=== PATIENT | female | born 1945 | race Caucasian/White ===

== ENCOUNTER → 2016-08-13 | Outpatient (CLI) | payer MEDICARE, OTHER ==
[~2016-08-13] MED LIST: ASP81CT PO; CHOL50003 PO; ESTR0.5T PO; Estrace; FISH1CAP15 PO; HYDR1TAB PO
--- NOTE | 2016-08-13 15:44 | Diagnostic Imaging Report ---
Examination: DEXA scan. Indication: Osteopenia Technique: Bone mineral density estimated based on dual energy radiography over the lumbar spine and femoral necks, was performed. Findings: The lumbar spine T-score is 0. This is 4.8% increased density measurement compared to previous exam from 2012 and could be from mild degenerative sclerosis. T score over the femoral neck on the left is -1.7 and on the right is -1.9.. This is unchanged from 2012 measurements. Impression: Osteopenia. Dictated by: Dictated on workstation # [id number]
== END ==
LOC: RAD 11:03
PROVIDERS: ATTEND Family Medicine
DX: M85.852 Other specified disorders of bone density and structure, left thigh (principal)
CPT/HCPCS: 77080

== ENCOUNTER 2016-09-03 05:42 | Outpatient (CLI) | payer MEDICARE, OTHER ==
[~2016-09-03] VITALS: Ht 165.1 cm; Wt 68.0 kg
[~2016-09-03 05:42] MED LIST changes: -ESTR0.5T PO
[2016-09-03] MEDS ORDERED: ESTR0.5T PO (12:37)
== END 2016-09-03 12:39 ==
LOC: PREOP 05:42
PROVIDERS: ATTEND Surgery
DX: Z01.818 Encounter for other preprocedural examination (principal); Z12.11 Encounter for screening for malignant neoplasm of colon

== ENCOUNTER 2016-09-07 07:52 | Day surgery (SDC) | payer MEDICARE, OTHER ==
[~2016-09-07] VITALS: Ht 165.1 cm; Wt 68.0 kg
[~2016-09-07 07:52] MED LIST changes: +ESTR0.5T PO
--- OUTSIDE RECORDS SUMMARY | 2016-09-07 07:55 | XMS REPORT | Continuity of Care Document ---
Author Author [facility] Organization [facility] Address Unknown Phone Unavailable Care Team Providers Care Cafeteria Counter Attendant Name Role Phone MICHELLE MARQUIS DO PCP Insurance Providers Payer Name Policy Number Subscriber Name Relationship Wps Medicare [id number] Hema Freeman 18 Self / Same As Patient Enter Insurance Name [id number] Hema Freeman 18 Self / Same As Patient Advance Directives Directive Response Recorded Date/Time Advance Directives No 09/03/16 12:33pm Health Care Power of Child Life Assistant No 09/03/16 12:33pm Organ Donor Yes 09/03/16 12:33pm Resuscitation Status Full Code 09/03/16 12:33pm Problems No problem information available. Medications Current Home Medications Medication Dose Units Route Directions Days/Qty Instructions Start Date Fish Oil/Dha/Epa 1 Each 1 Each Oral Daily 04/18/12 Cholecalciferol 5,000 Unit 5,000 Unit Oral Daily 04/18/12 Aspirin 81 Mg 81 Mg Oral Daily 04/18/12 Estradiol 0.5 Mg 0.5 Mg Oral Daily 09/03/16 Past Home Medications Medication Directions Ordered Status [Estrace] , 04/18/12 Discontinued Acetaminophen/Hydrocodone Bitart 1 Each Tablet, 1 - 2 Each Oral Q 4-6 Hr Prn Pain 04/19/12 Discontinued Social History Social History Problem Response Recorded Date/Time Alcohol Use Denies Use 09/03/2016 12:33pm Recreational Drug Use No 09/03/2016 12:33pm Recent Foreign Travel No 09/03/2016 12:33pm Recent Infectious Disease Exposure No 09/03/2016 12:33pm Smoking Status Never a Smoker 09/03/2016 12:33pm Recent Hopitalizations No 09/03/2016 12:33pm Query Response Start Date Stop Date Smoking Status Never a Smoker Hospital Discharge Instructions No hospital discharge instructions. Plan of Care Discharge Date 09/03/16 12:39pm Prescriptions See Medication Section Functional Status No functional status results. Allergies, Adverse Reactions, Alerts Allergen Type Severity Reaction Status Last Updated SULFA Allergy Unknown Active 12/10/10 Immunizations No immunization records. Vital Signs Acute Vital Signs Vital Response Date/Time Height (Feet) 5 feet 09/03/2016 12:33pm Height (Inches) 5.00 inches 09/03/2016 12:33pm Height (Calculated Centimeters) 165.478316 cm 09/03/2016 12:33pm Weight (Pounds) 150 pounds 09/03/2016 12:33pm Weight (Ounces) 0.0 oz 09/03/2016 12:33pm Weight (Calculated Grams) 13387.86 gm 09/03/2016 12:33pm Weight (Calculated Kilograms) 68.431478 kilograms 09/03/2016 12:33pm Calculated BMI 25.0 09/03/2016 12:33pm Results No known relevant diagnostic tests, laboratory data and/or discharge summary. Procedures No known history of procedures. Encounters Encounter Location Arrival/Admit Date Discharge/Depart Date Attending Provider Departed Clinic [facility] 09/03/16 5:42am 09/03/16 12: 39pm HERNAN TO MD Registered Clinic [facility] 08/13/16 11:03am MICHELLE MARQUIS DO Registered Clinic [facility] 08/07/16 3:00pm MICHELLE MARQUIS DO
--- OUTSIDE RECORDS SUMMARY | 2016-09-07 07:55 | XMS REPORT | Continuity of Care Document ---
Author Author [facility] Organization [facility] Address Unknown Phone Unavailable Care Team Providers Care First Cook Name Role Phone MICHELLE MARQUIS DO PCP Insurance Providers Payer Name Policy Number Subscriber Name Relationship Wps Medicare [id number] Hema Freeman 18 Self / Same As Patient Enter Insurance Name [id number] Hema Freeman 20 Self / Same As Patient Advance Directives Directive Response Recorded Date/Time Advance Directives No 09/03/16 12:33pm Health Care Power of Enterprise Resource Planner No 09/03/16 12:33pm Organ Donor Yes 09/03/16 [...] 5.00 inches 09/03/2016 12:33pm Height (Calculated Centimeters) 165.198354 cm 09/03/2016 12:33pm Weight (Pounds) 150 pounds 09/03/2016 12:33pm Weight (Ounces) 0.0 oz 09/03/2016 12:33pm Weight (Calculated Grams) 31463.86 gm 09/03/2016 12:33pm Weight (Calculated Kilograms) 68.195393 kilograms 09/03/2016 12:33pm Calculated BMI 25.0 09/03/2016 12:33pm Results No known relevant diagnostic tests, laboratory data and/or discharge summary. Procedures No known history of procedures. Encounters Encounter Location Arrival/Admit Date Discharge/Depart Date Attending Provider Departed Clinic [facility] 09/03/16 5:42am 09/03/16 12: 39pm HERNAN TO MD Registered Clinic [facility] 08/13/16 11:03am MICHELLE MARQUIS DO Registered Clinic [facility] 08/07/16 3:00pm MICHELLE MARQUIS DO
[2016-09-07] MEDS ORDERED: NS IV 500 ML 500 ML ONE (08:07)
[2016-09-07 08:33] VITALS: BP 118/78
[2016-09-07] MEDS ORDERED: MIDAZOLAM 2 MG/2 ML (VERSED) VIAL ONE ×3 (08:43→08:44)
[2016-09-07] MEDS ORDERED: fentaNYL INJECTION 100 MCG/2 ML AMP ONE ×2 (08:44)
[2016-09-07] MEDS: fentaNYL INJECTION 100 MCG/2 ML AMP IVP PRN ×2 (08:47→08:55)
--- NOTE | 2016-09-07 08:48 | Pre-Op Note & Conscious Sedat ---
Pre-Operative Progress Note H&P Reviewed The H&P was reviewed, patient examined and no changes noted. Date H&P Reviewed: Sep 07, 2016 Time H&P Reviewed: 08:48 Pre-Op Diagnosis: screening. Family history of colon cancer Conscious Sedation Pre-Proced ASA Class: 1 Airway Mallampati Classification: ([place] appropriate class) I. II. III, IV Lungs Heart ASA score ASA 1: a normal healthy patient ASA 2: a patient with a mild systemic disease (mid diabetes, controlled hypertension, obesity ASA 3: a patient with a severe systemic disease that limits activity (angina , COPD, prior Myocardial infarction) ASA 4: a patient with an incapacitating disease that is a constant threat to life (CHF, renal failure) ASA 5: a moribund patient not expected to survive 24 hrs. (ruptured aneurysm) ASA 6: a declared brain patient whose organs are being harvested. For emergent operations, add the letter E after the classification Grade 1 Sedation Plan: Discussed options with patient/fam Note The patient is an appropriate candidate to undergo the planned procedure, sedation, and anesthesia. The patient immediately re-assessed prior to indication. HERNAN TO MD Sep 07, 2016 8:48 am
[2016-09-07] MEDS: MIDAZOLAM 2 MG/2 ML (VERSED) VIAL IVP PRN ×3 (08:50→09:02)
[2016-09-07] MEDS ORDERED: FLUMAZENIL (ROMAZICON) 0.1 MG/ML 5 ML VIAL INJ PRN (09:00)
[2016-09-07] MEDS ORDERED: NALOXONE 0.4 MG/ML 1 ML (NARCAN) VIAL IVP PRN (09:00)
[2016-09-07] MEDS ORDERED: NS IV 500 ML 500 ML IV PRN (09:00)
--- NOTE | 2016-09-07 09:15 | Progress Note-Post Operative ---
Post-Operative Progess Note Pre-Operative Diagnosis screening. Family history of colon cancer Post-Operative Diagnosis diffuse diverticulosis Post-Op Procedure Note Date of Procedure: Sep 07, 2016 Name of Procedure: colonoscopy to cecum Anesthesia Type sedation HERNAN TO MD Sep 07, 2016 9:15 am
--- NOTE | 2016-09-07 09:16 | Discharge Inst-Simple/Standard ---
Discharge Inst-Standard Discharge Medications New, Converted or Re-Newed RX: Other Patient Instructions/Follow Up Plan of Care/Instructions/FU: repeat colonoscopy in 5 years Activity as Tolerated: Yes Discharge Diet: No Restrictions HERNAN TO MD Sep 07, 2016 9:16 am
[2016-09-07 09:30] VITALS: BP 103/72
[2016-09-07 10:00] VITALS: BP 109/70
--- NOTE | 2016-09-07 10:34 | PROCEDURE REPORT ---
PROCEDURE PHYSICIAN: HERNAN TO DATE OF PROCEDURE: 09/07/2016 PROCEDURE: Screening colonoscopy. SURGEON: Demarcus INDICATION FOR THE PROCEDURE: This lady came in for screening colonoscopy. She reported a positive family history of colon cancer. Informed consent was obtained after reviewing the procedure in detail. DESCRIPTION OF PROCEDURE: She was placed in left lateral decubitus position and her vital signs were monitored. Conscious sedation was achieved using Versed and fentanyl. Digital rectal examination was unremarkable. The colonoscope was then introduced into the rectum and advanced all the way up to the cecum. The scope was then withdrawn slowly and the mucosa examined in a systematic fashion. FINDINGS: 1. Quite diffuse diverticulosis, all the way up to the cecum. 2. No polyps were found. She tolerated the procedure well and was taken back to the nursing area in a stable condition. IMPRESSION: 1. Screening colonoscopy. 2. No polyps. 3. Positive family history. Recommend repeating in 5 years. Job ID: [id number] Dictated Date: 09/07/2016 09:13:47 Front End Assistant Date: 09/07/2016 10:30:08 / glenn SHULTZ
[2016-09-07 14:10] VITALS: BP 109/70
== END 2016-09-07 10:08 | disposition home or self-care (01) ==
LOC: ENDO 07:52
PROVIDERS: ATTEND Surgery
DX: Z12.11 Encounter for screening for malignant neoplasm of colon (principal); Z80.0 Family history of malignant neoplasm of digestive organs; K57.90 Diverticulosis of intestine, part unspecified, without perforation or abscess without bleeding

== ENCOUNTER → 2017-09-01 | Outpatient (CLI) | payer MEDICARE, OTHER ==
--- NOTE | 2017-09-01 19:29 | Diagnostic Imaging Report ---
INDICATION: Routine screening. Comparison is made with prior exam from 08/07/2016 and 08/06/2015. The current study was also evaluated with a Computer Aided Detection (CAD) system. FINDINGS: Scattered fibronodular densities again noted. The overall parenchymal pattern is stable. No mass or malignant appearing microcalcifications are seen. The axillae are unremarkable. IMPRESSION: No mammographic features suspicious for malignancy are identified. ACR BI-RADS Category 1: Negative. Result letter will be mailed to the patient. Note: At least 10% of breast cancer is not imaged by mammography. Dictated by: Dictated on workstation # [id number]
== END ==
LOC: RAD 11:40
PROVIDERS: ATTEND Family Medicine
DX: Z12.31 Encounter for screening mammogram for malignant neoplasm of breast (principal)
CPT/HCPCS: 77067

== ENCOUNTER → 2018-09-05 | Outpatient (CLI) | payer MEDICARE, OTHER ==
--- NOTE | 2018-09-06 19:54 | Diagnostic Imaging Report ---
Digital mammogram bilateral screening with 3-D tomosynthesis and CAD. Bilateral digital mammography is performed with computer assisted detection (CAD) software utilization. 3D tomosynthesis is performed. This study was compared to the prior exam of 09/01/2017, 08/07/16 and 08/06/2015. At this time, there are no current complaints. FINDINGS: There are scattered fibroglandular densities in both breasts which could obscure a lesion. Overall, there does not appear to have been any significant change when compared to the prior exam. No primary or secondary sign of malignancy is noted. IMPRESSION: There is no radiographic evidence for malignancy. ACR BI-RADS Category 1: Negative. Result letter will be mailed to the patient. Note: At least 10% of breast cancer is not imaged by mammography. Dictated by: Dictated on workstation # [id number]
== END ==
LOC: RAD 14:17
PROVIDERS: ATTEND Family Medicine
DX: Z12.31 Encounter for screening mammogram for malignant neoplasm of breast (principal)
CPT/HCPCS: 77067

== ENCOUNTER → 2018-09-20 | Outpatient (CLI) | payer MEDICARE, OTHER ==
--- NOTE | 2018-09-20 14:06 | Diagnostic Imaging Report ---
INDICATION: Postmenopausal screening for osteoporosis. COMPARISON: 08/13/2016 FINDINGS: AP Spine L1-L4: [BMD (g/cm2): 1.215] [T-Score: 0.1] [Z-Score: 1.7] [BMD Previous: 1.206] [BMD % Change: 0.7] LT Hip Neck: [BMD (g/cm2): 0.834] [T-Score: -1.5] [Z-Score: 0.2] LT Hip Total: [BMD (g/cm2):0.780] [T-Score:-1.8] [Z-Score: -0.3] [BMD Previous: 0.792] [BMD % Change: N/A] RT Hip Neck: [BMD (g/cm2):0.751] [T-Score:-2.1] [Z-Score:-0.4] RT Hip Total: [BMD (g/cm2):0.754] [T-score:-2.0] [Z-Score:-0.6] [BMD Previous:0.774] [BMD % Change:N/A] *Indicates significant change from prior examination based on 95% confidence level. World Health Organization criteria for BMD interpretation classify patients as Normal (T-score at or above -1.0), Osteopenic (T-score between -1.0 and -2.5) or Osteoporotic (T-score at or below -2.5). LIMITATIONS AND MODIFICATION: None. FRACTURE RISK (FRAX SCORE): The ten year probability of (%): Major Osteoporotic Fracture: [13] Hip Fracture: [2.8] IMPRESSION: 1. Osteopenia (Low bone mass). 2. No Significant change in bone mineral density since prior examination. 3. See below National Osteoporosis Foundation guidelines on when to potentially initiate pharmacologic therapy. Based on the National Osteoporosis Foundation Guidelines, pharmacologic treatment should be initiated in any of the following, unless clinical conditions suggest otherwise: * Any patient with prior fragility fracture of the hip or vertebrae. A spine fracture indicates 5X risk for subsequent spine fracture and 2X risk for subsequent hip fracture. * Osteoporosis (T-score <-2.5). * Postmenopausal women and men age 50 and older with low bone mass/osteopenia (T-score between -1.0 and -2.5) by DXA and 10-year major osteoporotic fracture greater than 20% or a 10-year probability of hip fracture greater than 3%. These fracture risks are supplied above in the FRAX score, if applicable. * Clinician judgement and/or patient preferences may indicate treatment for people with 10-year fracture probabilities above or below these levels. Dictated by: Dictated on workstation # [id number]
== END ==
LOC: RAD 11:15
PROVIDERS: ATTEND Family Medicine
DX: Z13.820 Encounter for screening for osteoporosis (principal); M85.89 Other specified disorders of bone density and structure, multiple sites; Z78.0 Asymptomatic menopausal state
CPT/HCPCS: 77080

== ENCOUNTER → 2019-09-14 | Outpatient (CLI) | payer MEDICARE, OTHER ==
--- NOTE | 2019-09-14 13:32 | Diagnostic Imaging Report ---
INDICATION: Routine screening. COMPARISON: Comparison is made with prior mammograms from 09/05/2018 and 09/01/2017. 2-D and 3-D bilateral screening mammography was performed. The current study was also evaluated with a Computer Aided Detection (CAD) system. 3-D tomosynthesis was also performed and reviewed. FINDINGS: Scattered fibroglandular densities are identified bilaterally. No spiculated mass or malignant-appearing microcalcifications are seen. Nodular densities in the superior retroareolar left breast appears stable. Axillae are unremarkable. IMPRESSION: No mammographic features suspicious for malignancy are identified. ACR BI-RADS Category 2: Benign findings. Result letter will be mailed to the patient. Note: At least 10% of breast cancer is not imaged by mammography. Dictated by: Dictated on workstation # [id number]
== END ==
LOC: RAD 11:14
PROVIDERS: ATTEND Family Medicine
DX: Z12.31 Encounter for screening mammogram for malignant neoplasm of breast (principal)
CPT/HCPCS: 77067

== ENCOUNTER → 2021-01-03 | Outpatient (CLI) | payer MEDICARE, OTHER ==
--- NOTE | 2021-01-07 15:13 | Diagnostic Imaging Report ---
INDICATION: Routine screening. COMPARISON: 09/14/2019 and 09/05/2018. TECHNIQUE: 2D and 3D bilateral screening mammography was performed with CAD. FINDINGS: Scattered fibroglandular densities are identified bilaterally. The parenchymal pattern is stable. No new mass or malignant appearing microcalcifications are seen. The axillae are unremarkable. IMPRESSION: No mammographic features suspicious for malignancy are identified. ACR BI-RADS Category 1: Negative. Result letter will be mailed to the patient. Note: At least 10% of breast cancer is not imaged by mammography. Dictated by: Dictated on workstation # [id number]
== END ==
LOC: RAD 10:33
PROVIDERS: ATTEND Family Medicine
DX: Z12.31 Encounter for screening mammogram for malignant neoplasm of breast (principal)
CPT/HCPCS: 77063; 77067

== ENCOUNTER → 2022-01-08 | Outpatient (CLI) | payer MEDICARE, OTHER ==
--- NOTE | 2022-01-08 13:42 | Diagnostic Imaging Report ---
Indication: Routine screening. Comparison is made with prior mammograms from 01/03/2021 and 09/14/2019. 2-D and 3-D bilateral screening mammography was performed with CAD. Both breasts are heterogeneously dense, limiting the sensitivity of mammography. The parenchymal pattern is stable. No mass or malignant-appearing microcalcifications are seen. Axillae are unremarkable. IMPRESSION: BI-RADS Category 1 No mammographic features suspicious for malignancy are identified. ACR BI-RADS Category 1: Negative. Result letter will be mailed to the patient. Note: At least 10% of breast cancer is not imaged by mammography. Dictated by: Dictated on workstation # [id number]
== END ==
LOC: RAD 11:30
PROVIDERS: ATTEND Family Medicine
DX: Z12.31 Encounter for screening mammogram for malignant neoplasm of breast (principal)
CPT/HCPCS: 77063; 77067

== ENCOUNTER 2022-01-21 06:02 | Outpatient (CLI) | payer MEDICARE, OTHER ==
[~2022-01-21] VITALS: Ht 162.6 cm; Wt 61.7 kg
[2022-01-22] MEDS ORDERED: CALC-250 PO (09:02)
[2022-01-22] MEDS ORDERED: ESTR0.5T3 PO (09:02)
[2022-01-22] MEDS ORDERED: OMG1KC PO (09:02)
== END 2022-01-22 10:48 | disposition home or self-care (01) ==
LOC: PREOP 06:02
PROVIDERS: ATTEND Internal Medicine
DX: Z01.818 Encounter for other preprocedural examination (principal)

== ENCOUNTER 2022-01-30 09:22 | Day surgery (SDC) | payer MEDICARE, OTHER ==
--- NOTE | 2022-01-21 07:45 | HISTORY AND PHYSICAL ---
DATE OF SERVICE: COLONOSCOPY HISTORY AND PHYSICAL DATE OF ADMISSION: 01/30/2022 HISTORY OF PRESENT ILLNESS: The patient is a 76-year-old white female referred by Dr. Ramires for screening colonoscopy. She is deemed to be of higher than average risk as her mother was diagnosed with colon cancer, she believes in her 80s. She likely succumbed to the disease at the age of 90. She last underwent screening colonoscopy 5-1/[address] Tracy. Her electronic medical record was reviewed and no evidence for neoplasia was identified at that time with no other significant abnormalities being reported. She denies melena. She did have an episode of small volume rectal bleeding in September that she attributed to hemorrhoids, was one time occurrence not associated with pain and there has been no subsequent bleeding reported. She denies change in weight. Denies constipation, diarrhea or abdominal pain. PAST MEDICAL HISTORY: Pretty unremarkable. She only takes estradiol for vasomotor symptoms every other day and is on vitamin D, and fish oil. ALLERGIES: SHE REPORTS AN ALLERGY TO SULFA, WHICH CAUSES RASH. PAST SURGICAL HISTORY: She had total abdominal hysterectomy and bilateral salpingo-oophorectomy done for benign reasons around perimenopausal age. She has had cholecystectomy in 2012, a section. In the past, she has had shoulder surgery and prior to hysterectomy, obviously a tubal ligation. FAMILY HISTORY: As noted above. SOCIAL HISTORY: She is , has 2 children. No smoking and no alcohol use history. She is retired. REVIEW OF SYSTEMS: CONSTITUTIONAL: Denies night sweats, chills, fever or change in weight. GASTROINTESTINAL: As noted in the HPI. PULMONARY: Denies cough, wheezing or shortness of breath. CARDIOVASCULAR: Denies orthopnea, PND, pedal edema or chest discomfort. PHYSICAL EXAMINATION: GENERAL: Reveals a pleasant white female, appearing younger than stated age. VITAL SIGNS: Weight 136 pounds, blood pressure 120/68. HEENT: Unremarkable. Sclerae nonicteric. CHEST: Clear to auscultation. CARDIOVASCULAR: Reveals a regular rate and rhythm without murmur, S3 or S4. ABDOMEN: Soft, supple without mass, organomegaly or tenderness. Bowel sounds positive. No evidence for abdominal aortic aneurysm. No bruits noted. EXTREMITIES: Reveal no cyanosis, clubbing or edema. ASSESSMENT: The patient is being set up for surveillance colonoscopy on 01/30/2022. Prep instructions with the Sutab prep were given and questions were answered. Electronic medical record was reviewed as noted above. I thank you for the referral of this pleasant lady. Job ID: [id number] DocumentID: [id number] Dictated Date: 01/12/2022 15:48:35 Polysomnograph Tech Date: 01/12/2022 16:18:53 Dictated By: DELMER WATSON MD
[~2022-01-30] VITALS: Ht 162 cm; Wt 61.7 kg
[~2022-01-30 09:22] MED LIST changes: +CALC-250 PO; +ESTR0.5T3 PO; +OMG1KC PO
[2022-01-30] MEDS ORDERED: LACTATED RINGERS 1,000 ML IV ONE (09:32)
--- NOTE | 2022-01-30 09:36 | Pre-Op Note & Conscious Sedat ---
Pre-Operative Progress Note H&P Reviewed The H&P was reviewed, patient examined and no changes noted. Date H&P Reviewed: Jan 30, 2022 Time H&P Reviewed: 09:36 Conscious Sedation Pre-Proced ASA Score 2 For ASA 3 and 4: Consider anesthesia and medical clearance. Also, for patients with a history of failed moderate sedation consider anesthesia. Airway Lungs Heart ASA score ASA 1: a normal healthy patient ASA 2: a patient with a mild systemic disease (mid diabetes, controlled hypertension, obesity ASA 3: a patient with a severe systemic disease that limits activity (angina, COPD, prior Myocardial infarction) ASA 4: a patient with an incapacitating disease that is a constant threat to life (CHF, renal failure) ASA 5: a moribund patient not expected to survive 24 hrs. (ruptured aneurysm) ASA 6: a declared brain- patient whose organs are being harvested. For emergent operations, add the letter E after the classification Mallampati Classification Grade 2 Sedation Plan Analgesia, Amnesia, Plan communicated to team members, Discussed options with patient/fam, Discussed risks with patient/fam The patient is an appropriate candidate to undergo the planned procedure, sedation, and anesthesia. The patient immediately re-assessed prior to indication. DELMER WATSON MD Jan 30, 2022 09:36
[2022-01-30] MEDS ORDERED: LACTATED RINGERS 1,000 ML IV STA (09:38)
[2022-01-30 09:40] VITALS: BP 121/68
[2022-01-30] MEDS ORDERED: PROPOFOL INJECTION 50 ML IV ONE (10:10)
[2022-01-30 10:50] VITALS: BP 90/53
[2022-01-30 10:53] VITALS: BP 92/52
[2022-01-30 11:15] VITALS: BP 116/73
--- NOTE | 2022-01-30 11:50 | Anesthesia-General Post-Op ---
MAC Patient Condition Mental Status/LOC: Same as Preop Cardiovascular: Satisfactory Nausea/Vomiting: Absent Respiratory: Satisfactory Pain: Controlled Complications: Absent Post Op Complications Complications None Follow Up Care/Instructions Patient Instructions None needed. Anesthesiology Discharge Order Discharge Order Patient is doing well, no complaints, stable vital signs, no apparent adverse anesthesia problems. No complications reported per nursing. ARIE HENRIQUEZ CRNA Jan 30, 2022 11:50
--- NOTE | 2022-01-30 18:49 | OPERATIVE REPORT ---
DATE OF SERVICE: COLONOSCOPY SUMMARY INDICATION FOR THE PROCEDURE: Screening. DESCRIPTION OF PROCEDURE: The patient was placed in the left lateral decubitus position. Prior to undergoing colonoscopy, a digital rectal evaluation was performed. Anal sphincter tone was normal and the perianal reflexes intact. No abnormalities were noted on digital inspection of anal canal or distal rectal vault. The colonoscope was then inserted into the rectum and under direct visualization advanced to the cecum. The cecum was identified by identification of ileocecal valve and cecal strap. Photographic documentation was obtained. Careful inspection was made as colonoscope was withdrawn. Quality of prep was suboptimal due to solid stool. I would estimate that no more than 5% of the colon was poorly visualized. FINDINGS: There was no evidence for internal or external hemorrhoids and the rectum was unremarkable. Moderate diverticular disease was present involving the sigmoid colon, descending colon, to a lesser extent the transverse colon and then moderate diverticular disease noted in the ascending colon, again with no cecal diverticulum being appreciated. No evidence for neoplasia was identified on today's study. ASSESSMENT: Moderate diverticular disease without evidence of diverticulitis was present predominantly in the sigmoid colon as well as ascending colon. Due to retained solid stool, would estimate more than 5% of the colon was poorly visualized. For this reason, if the patient's health remains good, we would advocate consideration for repeat screening colonoscopy in five years. Job ID: [id number] DocumentID: [id number] Dictated Date: 01/30/2022 10:58:03 Golf Ball Molder Date: 01/30/2022 18:48:21 Dictated By: DELMER WATSON MD
== END 2022-01-30 11:25 | disposition home or self-care (01) ==
LOC: ENDO 09:22
PROVIDERS: ATTEND Internal Medicine
DX: Z12.11 Encounter for screening for malignant neoplasm of colon (principal); K57.30 Diverticulosis of large intestine without perforation or abscess without bleeding

== ENCOUNTER → 2023-01-11 | Outpatient (CLI) | payer MEDICARE, OTHER ==
--- NOTE | 2023-01-11 16:12 | Diagnostic Imaging Report ---
Indication: Routine screening. Comparison is made with prior mammograms 01/08/2022 and 01/03/2021. 2-D and 3-D bilateral screening mammography was performed with CAD. Both breasts are heterogeneously dense, limiting the sensitivity of mammography. The parenchymal pattern is stable. No mass or malignant-appearing microcalcifications are seen. Axillae are unremarkable. IMPRESSION: BI-RADS Category 1 No mammographic features suspicious for malignancy are identified. ACR BI-RADS Category 1: Negative. Result letter will be mailed to the patient. Note: At least 10% of breast cancer is not imaged by mammography. Dictated by: Dictated on workstation # [id number]
== END ==
LOC: RAD 14:37
PROVIDERS: ATTEND Family Medicine
DX: Z12.31 Encounter for screening mammogram for malignant neoplasm of breast (principal)
CPT/HCPCS: 77063; 77067